=== PATIENT | male | born 2000 | race Caucasian/White ===

== ENCOUNTER 2019-03-27 22:41 | Emergency (ER) | payer OTHER ==
[2019-03-28] MEDS: OXYMETAZOLINE 0.05% 15 ML NAS SPRAY NASAL (00:20)
== END 2019-03-28 01:36 | disposition home or self-care (01) ==
LOC: FTE 03-28 01:36
DX: R04.0 Epistaxis (principal)
CPT/HCPCS: 99282; Z7502